=== PATIENT | male | born 1960 | race Caucasian/White ===

== ENCOUNTER 2016-08-13 16:32 | Emergency (ER) | payer BC ==
[~2016-08-13] VITALS: Ht 172.7 cm; Wt 96.7 kg
[2016-08-13 16:35] VITALS: TEMP 36.9; Ht 172.7 cm; Wt 96.7 kg
[2016-08-13] MEDS ORDERED: CLOP1TAB15 PO (16:51)
[2016-08-13] MEDS ORDERED: ISOS60TA25 PO (16:51)
[2016-08-13] MEDS ORDERED: CARV12.52 PO (16:51)
[2016-08-13] MEDS ORDERED: PRAS1TAB6 PO (16:51)
[2016-08-13] MEDS ORDERED: ASPI81TA28 PO (16:51)
[2016-08-13] MEDS ORDERED: LVMIPEN SC (16:56)
[2016-08-13] MEDS ORDERED: NVLGI/PEN SC (16:56)
[2016-08-13] MEDS ORDERED: FURO-85 PO (16:56)
[2016-08-13] MEDS ORDERED: AMOX500C3 PO (17:16)
--- NOTE | 2016-08-13 17:24 | EMERGENCY ROOM VISIT NOTE ---
History First contact with patient: 16:45 Chief Complaint: NOSE BLEED (MINOR) Stated Complaint: NOSEBLEED History of Present Illness The patient is a 56 year old male who presents to the Emergency Room with complaints of a left-sided nosebleed that started early this morning. The patient is currently on Plavix for history of cardiac stent last September. He denies any prior history of nosebleeds. The patient denies swallowing a lot of blood, nausea or significant bleeding from the right nostril. He denies any pain. Review of Systems 10 system review was performed and was negative except for pertinent positives and negatives as indicated in history of present illness Past Medical/Surgical History Medical Problems: (1) Coronary artery disease (2) Diabetes (3) Hypertension (4) Pneumonia Surgical Problems: (1) History of heart artery stent Social History Smoking Status: Current Every Day Smoker Alcohol Use: occasionally Marital Status: Housing Status: lives with family Occupation Status: employed Current/Historical Medications Scheduled Amoxicillin (Amoxil), 500 MG PO TID Aspirin (Aspirin Ec), 81 MG PO DAILY Carvedilol (Coreg), 12.5 MG PO BID Clopidogrel (Plavix), 75 MG PO DAILY Furosemide (Lasix), 20 MG PO DAILY Insulin Aspart (Novolog Flexpen), 10-20 UNITS SC TIDM Insulin Detemir (Levemir Flextouch), 20 UNITS SC BID Isosorbide Mononitrate Ext Rel (Imdur Ext Rel), 60 MG PO DAILY Prasugrel Hcl (Effient), 10 MG PO DAILY Allergies Coded Allergies: No Known Allergies (Unverified , 08/13/16) Physical Exam Vital Signs Date Time Temp Pulse Resp B/P Pulse Ox O2 Delivery O2 Flow Rate FiO2 08/13/16 16:35 36.9 76 20 200/76 97 Room Air Physical Exam CONSTITUTIONAL: Healthy and well nourished. Alert and oriented X 3 with positive affect. Patient does not appear in any acute distress. HEENT: Normocephalic, atraumatic. Pupils equal, round and reactive. Examination shows mild left epistaxis. There was a lot of blood in the nares, therefore the site of bleeding could not be visualized. The patient has no bleeding from the right nostril at this time. OROPHARYNX: No posterior pharyngeal bleeding noted. NECK: Full active range of motion without discomfort. RESPIRATORY: Clear to auscultation bilaterally with no wheezing, crackles, rhonchi or stridor. CARDIOVASCULAR: Regular rate and rhythm with no murmurs, rubs or gallops. INTEGUMENTARY: No rash or other significant dermatologic conditions noted. HEMATOLOGIC: No ecchymosis or petechiae noted. NEUROLOGIC: No focal neurologic deficits noted. Medical Decision & Procedures Procedure After receiving verbal consent from the patient, a 5.5 cm anterior rapid Rhino was inserted without any complications. ED Course Patient history and physical exam were performed. Nurse's notes were reviewed. Vital signs were reviewed, showing a blood pressure of 200/76. The patient reports that his blood pressure is usually in good control. Examination shows a left epistaxis. A 5.5 cm anterior rapid Rhino was inserted without difficulty. The patient was observed for approximately 15 minutes without any additional postnasal drip or crossover to the right nares. The patient was provided a prescription for amoxicillin. He was instructed to follow-up with an ENT physician or emergency department upon return home for balloon removal in 48 hours. He was instructed to return sooner for any active bleeding or other concerns. The patient was happy with plan of care, and voiced understanding of all discharge instructions. The patient was also instructed to follow-up with his PCP for blood pressure recheck. Medical Decision Impression Primary Impression: Left-sided epistaxis Additional Impression: Elevated blood pressure reading Departure Information Dispostion Home / Self-Care Prescriptions Amoxicillin (AMOXIL) 500 Mg Cap 500 MG PO TID for 5 Days, #15 CAP Prov: Malcolm Jefferson PA 08/13/16 Referrals No Doctor, Assigned (PCP) Forms HOME CARE DOCUMENTATION FORM, IMPORTANT VISIT INFORMATION Patient Instructions [facility] Additional Instructions Complete all amoxicillin antibiotics as prescribed. Packing needs to be removed in 48 hours. Suggest going to an emergency department or ENT physician for removal in case you have any active/persistent bleeding. Return to the emergency department immediately for any bleeding down the back of the throat or right nostril. Problem Qualifiers
[2016-08-13 17:33] VITALS: BP 218/87; PULSE 67; O2SAT 95
== END 2016-08-13 17:34 | disposition home or self-care (01) ==
LOC: C.EDB 16:34 → C.EDD 17:34
DX: R04.0 Epistaxis (principal); I10 Essential (primary) hypertension; I25.10 Atherosclerotic heart disease of native coronary artery without angina pectoris; E11.9 Type 2 diabetes mellitus without complications; Z79.02 Long term (current) use of antithrombotics/antiplatelets; Z79.4 Long term (current) use of insulin; Z79.82 Long term (current) use of aspirin; Z79.899 Other long term (current) drug therapy; Z87.01 Personal history of pneumonia (recurrent); Z87.891 Personal history of nicotine dependence; Z98.61 Coronary angioplasty status

== ENCOUNTER 2016-08-15 16:33 | Emergency (ER) | payer BC ==
[~2016-08-15] VITALS: Ht 174 cm; Wt 97.2 kg
[~2016-08-15 16:33] MED LIST: AMOX500C3 PO; ASPI81TA28 PO; CARV12.52 PO; CLOP1TAB15 PO; FURO-85 PO; ISOS60TA25 PO; LVMIPEN SC; NVLGI/PEN SC; PRAS1TAB6 PO
[2016-08-15 16:38] VITALS: TEMP 36.6; Ht 174 cm; Wt 97.2 kg
[2016-08-15] MEDS ORDERED: MULTTAB58 PO (17:14)
[2016-08-15] MEDS ORDERED: ASCO500T16 PO (17:14)
[2016-08-15 17:21] VITALS: BP 188/91; PULSE 61; O2SAT 96
--- NOTE | 2016-08-15 20:02 | EMERGENCY ROOM VISIT NOTE ---
ED Visit Note First contact with patient: 16:40 CHIEF COMPLAINT: Nasal packing removal. HISTORY OF PRESENT ILLNESS: Mr. De La Paz is a 53-year-old white male who ambulates into the ED requesting nasal packing removal. She reports he was seen in this emergency department 2 days ago for an uncontrolled left nostril epistaxis. A Rhino Rocket was placed which control bleeding. He was prophylactically put him on antibiotics. He reports with the exception of pressure pain in his nostril he has been feeling well and has had minimal drainage that was slightly bloody for the last few days. He feels like bleeding is controlled. He denies any associated symptoms. PHYSICAL EXAM: Vital Signs: Date Time Temp Pulse Resp B/P Pulse Ox O2 Delivery O2 Flow Rate FiO2 08/15/16 17:21 61 20 188/91 96 08/15/16 16:38 36.6 67 18 236/99 97 Room Air General: 56 year-old white male in no acute distress, nontoxic appearing, afebrile and hemodynamically stable. Neurological: Awake, alert and oriented 3. No focal motor sensory deficits. Answering questions appropriately and following commands. Pleasant and cooperative with my examination. HEENT: No tenderness or erythema throughout the face. No signs of facial trauma. No erythema or tenderness over the frontal or maxillary sinuses. Nasal packing was noted in the left nostril. Oral cavity is moist and pink. No blood in the posterior oropharynx. Airway is patent. Speech is normal. ED COURSE: Patient is assessed as noted above. Nasal packing was removed. I did have the patient blow his nose vigorously for times. No return of bleeding but when I return to the room approximately 5 minutes later mild bleeding had restarted. Patient's nose was clamped for approximately 15 minutes. I did take the clamp off and there was no active bleeding. Once again he blew his nose and had no return of bleeding. I did offer the patient replacement of the Rhino Rocket and he denies. Patient was educated about mikhailight's findings and instructed on his treatment plan; he verbalizes understanding and agreement with this plan. DISPOSITION: Patient discharged home in stable condition; prior to discharge she was reassessed and subjectively reported he was pain and symptom-free.. CLINICAL IMPRESSION: Nasal packing removal. PLAN: Patient was encouraged to continue his current medications as prescribed. Patient was encouraged to follow-up with his family physician for his high blood pressure and nasal bleed. Patient was encouraged return the ED for return of uncontrolled bleeding or any new/concerning symptoms.
== END 2016-08-15 17:23 | disposition home or self-care (01) ==
LOC: C.EDB 16:34 → C.EDD 17:23
DX: Z48.00 Encounter for change or removal of nonsurgical wound dressing (principal)